=== PATIENT | female | born 1950 | race Caucasian/White ===

== ENCOUNTER 2019-06-20 15:47 | Emergency (ER) | payer MEDICARE, MEDICAID ==
[~2019-06-20] VITALS: Ht 165.1 cm; Wt 68.0 kg
[~2019-06-20 15:47] MED LIST: AMIODARONE HCL200 MG PO; ASPIRIN EC81 MG PO; COUMADIN2.5 MG PO; DOK100 MG PO; HYDROCHLOROTHIA25 MG PO; INDERAL XL80 MG PO; LISINOPRIL-HCT1 EAC2 PO; LISINOPRIL40 MG PO; METOPROLOL TART25 MG PO; PAROXETINE HCL20 MG PO; PRAVACHOL40 MG PO
[2019-06-20] MEDS ORDERED: METOPROLOL SUCC50 MG PO (15:57)
--- NOTE | 2019-06-20 19:40 | EKG ---
[facility] [address] [facility] [place], [place] [address] Signed Normal sinus rhythm Nonspecific T wave abnormality Abnormal ECG Confirmed by PEACE WYATT DO ([id number]) on 06/20/2019 7:40:40 PM Electronically Signed By: PEACE WYATT DO 06/20/191939 PATIENT NAME: FRANCISOC LARA Electrocardiogram DATE OF : 48 PHYSICIAN: PEACE WYATT DO REPORT #: [id number] REPORT IS CONFIDENTIAL AND NOT TO BE RELEASED WITHOUT AUTHORIZATION
== END 2019-06-20 19:44 | disposition home or self-care (01) ==
LOC: ED 15:47
DX: R10.32 Left lower quadrant pain (principal); I10 Essential (primary) hypertension; Z87.891 Personal history of nicotine dependence; Z79.899 Other long term (current) drug therapy; Z79.82 Long term (current) use of aspirin
CPT/HCPCS: 71045; 71260; 80053; 83735; 84484; 85025; 85379; 93005; 93010; 99285-25; J1885; Q9967